=== PATIENT | male | born 1980 | race Hispanic/Latino ===

== ENCOUNTER 2023-11-22 06:33 | Day surgery (SDC) | payer OTHER ==
[~2023-11-22] VITALS: Ht 172.7 cm; Wt 83.2 kg
[~2023-11-22 06:33] MED LIST: NS 1,000 ML IV ONE; PANT40TA29 PO
[2023-11-22] MEDS ORDERED: LIDOCAINE 2% 100MG/5ML SDV (FOR ANES.) As Ordered ONE (07:15)
[2023-11-22] MEDS ORDERED: propofoL 200 MG/20 ML VIAL As Ordered ONE (07:15)
[2023-11-22] MEDS ORDERED: fentaNYL 100 MCG/2 ML INJECTION As Ordered ONE (07:27)
[2023-11-22 08:10] VITALS: TEMP 98.5
[2023-11-22 08:42] VITALS: BP 140/68; O2SAT 99
== END 2023-11-22 09:16 | disposition home or self-care (01) ==
LOC: M OPP 06:33
PROVIDERS: ATTEND Internal Medicine Gastroenterology
DX: K22.89 Other specified disease of esophagus (principal); K20.0 Eosinophilic esophagitis; R13.14 Dysphagia, pharyngoesophageal phase; Z79.899 Other long term (current) drug therapy
CPT/HCPCS: 43239; 43249; 88305; J3010

== ENCOUNTER → 2023-12-13 | Outpatient (CLI) | payer OTHER ==
[~2023-12-13] MED LIST changes: -NS 1,000 ML IV ONE
== END ==
LOC: M LRY 10:09
PROVIDERS: ATTEND Nurse Practitioner Family
DX: K20.0 Eosinophilic esophagitis (principal)